=== PATIENT | male | born 1985 | race Caucasian/White ===

== ENCOUNTER 2016-09-05 06:30 | Emergency (ER) | payer BC ==
[2016-09-05] MEDS ORDERED: IBUPROFEN 800 MG TAB PO STA (07:33)
--- NOTE | 2016-09-05 07:36 | ED ---
Extremity Problem HPI - General Chief complaint: Extremity Problem,Nontraumatic Stated complaint: Knee Pain Time Seen by Provider: 09/05/16 07:00 Source: patient, RN notes reviewed Mode of arrival: ambulatory Limitations: no limitations - History of Present Illness Initial comments: This is a 30-year-old male who presents with complaints of 2 days of left knee pain. He states he does live bending in lifting up and down type movements he points to the anterior aspect of his knee. He states the pain shooting at times sometimes sharp currently is 5-6/10 in severity it hurts when he moves it arrested feels improved. He denies any trauma fevers chills or sweats. He states that about a year ago he was told he may have arthritis possibly rheumatoid arthritis in his foot. He did take Aleve yesterday with some improvement of his pain. He denies any fevers chills sweats or other symptoms at this time MD Complaint: extremity pain - Related Data Previous Rx's Medication Instructions Recorded Ibuprofen 800 mg PO Q6HR PRN #20 tablet 09/05/16 Allergies Allergy/AdvReac Type Severity Reaction Status Date / Time No Known Allergies Allergy Verified 09/05/16 07:19 Review of Systems ROS Statement: Those systems with pertinent positive or pertinent negative responses have been documented in the HPI. ROS Other: All systems not noted in ROS Statement are negative. Past Medical History Past Medical History: No Reported History History of Any Multi-Drug Resistant Organisms: None Reported Past Surgical History: No Surgical Hx Reported Past Psychological History: Anxiety Smoking Status: Never smoker Past Alcohol Use History: None Reported Past Drug Use History: None Reported General Exam - General Exam Comments Initial Comments: This is a well-developed well-nourished awake alert oriented 3 male Limitations: no limitations General appearance: alert, in no apparent distress Head exam: Present: atraumatic, normocephalic, normal inspection Eye exam: Present: normal appearance, PERRL, EOMI. Absent: scleral icterus, conjunctival injection, periorbital swelling Neck exam: Present: normal inspection Respiratory exam: Present: other (No evidence of respiratory distress) Cardiovascular Exam: Present: other (Social recall and regular) Extremities exam: Present: normal inspection, full ROM, tenderness, normal capillary refill, other (Tenderness palpation of the patella with a small amount crepitation attentive ballottement. Some tenderness over the patellar tendon no definite effusion. Patient does demonstrate full range of motion no posterior medial or lateral tenderness palpation no definite pain was worse or valgus stress) Neurological exam: Present: alert, oriented X3, CN II-XII intact Psychiatric exam: Present: normal affect, normal mood Skin exam: Present: warm, dry, intact, normal color. Absent: rash Course Vital Signs 09/05/16 06:38 Temperature 96.8 F L Pulse Rate 87 Respiratory 18 Rate Blood Pressure 138/74 O2 Sat by Pulse 97 Oximetry Medical Decision Making - Medical Decision Making I did discuss the findings with the patient. The presentation is consistent with patellar bursitis. Patient will be discharged with anti-inflammatory she is a follow-up with his doctor and return when necessary off work for rest of the shift today. - Radiology Data Radiology results: report reviewed (I did review the imaging and report no acute findings are seen.), image reviewed Disposition Clinical Impression: Patellar bursitis of left knee Disposition: HOME SELF-CARE Condition: Good Instructions: Knee Bursitis (ED) Prescriptions: Ibuprofen 800 mg PO Q6HR PRN #20 tablet PRN Reason: Pain Referrals: Gustavo Ashraf MD [Primary Care Provider] - 1-2 days
--- NOTE | 2016-09-05 08:05 | XR ---
EXAMINATION TYPE: XR knee 4V LT DATE OF EXAM ORDERED: 09/05/2016 HISTORY: Pain. FINDINGS: No fracture, dislocation or joint effusion is seen. The joint spaces are well maintained. T here is no chondrocalcinosis.. IMPRESSION: NORMAL LEFT KNEE.
[2016-09-05 08:27] VITALS: BP 131/76; PULSE 74; RESP 20; TEMP 97.1
== END 2016-09-05 08:27 | disposition home or self-care (01) ==
LOC: EDBD → EC 06:30
DX: M70.42 Prepatellar bursitis, left knee (principal)
CPT/HCPCS: 99283

== ENCOUNTER → 2017-12-31 | Outpatient (CLI) | payer OTHER ==
--- NOTE | 2017-12-31 08:32 | US ---
EXAMINATION TYPE: US liver DATE OF EXAM: 12/31/2017 COMPARISON: NONE CLINICAL HISTORY: R94.5 ABN Liver Function. Elevated LFT's EXAM MEASUREMENTS: Liver Length: 16.3 cm Gallbladder Wall: 0.3 cm CBD: 0.5 cm Right Kidney: 12.0 x 5.5 x 5.7 cm Large pt body habitus, difficult to scan Pancreas: wnl, tail obscured by overlying bowel gas Liver: Difficult to visualized, heterogeneous, cyst right lobe adjacent to GB= 3.5 x 3.6 x 4.2 cm Gallbladder: Possible sludge with small gallstones at neck Evidence for sonographic Hill's sign: No CBD: wnl Right Kidney: Visualized portions appeared wnl IMPRESSION: 1. Cholelithiasis with underlying bladder sludge. No evidence for wall thickening. 2. Hepatic cyst. 3. Hepatic steatosis.
== END | disposition home or self-care (01) ==
LOC: RADUSWWP 07:53
PROVIDERS: ATTEND Family Medicine
DX: K80.20 Calculus of gallbladder without cholecystitis without obstruction (principal); K76.89 Other specified diseases of liver; K76.0 Fatty (change of) liver, not elsewhere classified; N32.89 Other specified disorders of bladder
CPT/HCPCS: 76705

== ENCOUNTER → 2018-04-22 | Outpatient (CLI) | payer OTHER ==
[2018-04-22 10:12] LABS: HCT 50.4 % (39.0-53.0); MCH 29.9 pg (25.0-35.0); MCHC 33.7 g/dL (31.0-37.0); MCV 88.8 fL (80.0-100.0); Mean Platelet Volume 6.8; Platelet Count 246 k/uL (150-450); RBC 5.67 m/uL (4.30-5.90); RDW 13.2 % (11.5-15.5); WBC 7.1 k/uL (3.8-10.6)
[2018-04-22 17:17] LABS: Albumin 4.4 g/dL (3.80-4.90); Albumin/Globulin Ratio 1.83 (1.60-3.17); Anion Gap 10.3 mmol/L (4.00-12.00); Calcium 9.4 mg/dL (8.7-10.3); Carbon Dioxide 25.7 mmol/L (21.6-31.8); Globulin 2.4 g/dL (1.6-3.3); Potassium 4.2 mmol/L (3.5-5.5); Total Bilirubin 0.9 mg/dL (0.2-1.2); Total Protein 6.8 g/dL (6.2-8.2)
== END | disposition home or self-care (01) ==
LOC: LABWHC1 09:12
PROVIDERS: ATTEND Surgery
DX: K81.1 Chronic cholecystitis (principal)
CPT/HCPCS: 36415; 80053; 85027

== ENCOUNTER 2018-04-26 07:45 | Day surgery (SDC) | payer OTHER ==
[2018-04-24 14:33] VITALS: BMI 38.7
[~2018-04-26 07:45] MED LIST: DEXAMETHASONE SOD PHOSPHATE 10 MG/ML 1 ML VIAL IV ONE; HEPARIN SODIUM,PORCINE 5,000 UNIT/ML 1 ML VIAL SQ ONE; LACTATED RINGERS 1,000 ML IV SCH; MIDAZOLAM (PF) 2 MG/2 ML VIAL IV PRN; SCOPOLAMINE 1.5MG/72HR PATCH TRANSDERM ONE; ceFAZolin IN SWFI 2 GM/20 ML SYRINGE IVP ONE
[2018-04-26] MEDS: ONDANSETRON 4 MG/2 ML VIAL IVP ONE ×2 (08:24→11:10)
[2018-04-26] MEDS ORDERED: GLYCOPYRROLATE 0.2 MG/ML 2 ML VIAL ONE (09:37)
[2018-04-26] MEDS ORDERED: LIDOCAINE 1% INJ 10MG/ML (20 ML MDV) ONE (09:37)
[2018-04-26] MEDS ORDERED: MIDAZOLAM 2 MG/2 ML VIAL ONE (09:37)
[2018-04-26] MEDS ORDERED: NEOSTIGMINE 1 MG/ML 10 ML VIAL ONE (09:37)
[2018-04-26] MEDS ORDERED: fentaNYL (PF) 50 MCG/ML 2 ML AMP ONE (09:37)
[2018-04-26] MEDS ORDERED: ROCURONIUM BROMIDE 10 MG/ML 10 ML VIAL IV ONE (09:37)
[2018-04-26] MEDS ORDERED: SUCCINYLCHOLINE CHLORIDE 100 MG/5 ML SYR IV ONE (09:37)
[2018-04-26] MEDS ORDERED: PROPOFOL 10 MG/ML 20 ML VIAL IV ONE (09:37)
[2018-04-26] MEDS ORDERED: BUPIVACAIN-EPI 0.5%-1:200,000 30 ML VIAL SQ ONE (10:07)
[2018-04-26] MEDS ORDERED: HYDROcodone/APAP 5-325MG 1 EACH TAB PO PRN (10:40)
[2018-04-26] MEDS ORDERED: NALOXONE 0.4 MG/ML 1 ML VIAL IV PRN (10:40)
--- NOTE | 2018-04-26 10:43 | P.OP ---
Date of Procedure: 04/26/18 Procedure(s) Performed: PREOPERATIVE DIAGNOSIS: Chronic cholecystitis POSTOPERATIVE DIAGNOSIS: Same, liver cyst PROCEDURE: Laparoscopic cholecystectomy SURGEON: Luz Maria EBL: Minimal see anesthesia record ANESTHESIA: Gen. COMPLICATIONS: None OPERATIVE PROCEDURE: The patient was brought and placed on the operating room table in the supine position. The patient was placed under general anesthesia at that time. The abdomen was prepped and draped in the usual sterile fashion. A small vertical infraumbilical incision was made. The fascia was grasped with the Madhu forceps. The fascia was retracted anteriorly. The Veress needle was advanced into the peritoneal cavity. The saline drop test was normal. Insufflation took place up to 15 mmHg. A 5 mm optical trocar was advanced and the peritoneal cavity. 2 additional 5 mm trochars were placed in the right upper quadrant under direct visualization. A 12 mm trocar was advanced into the epigastric incision site. The gallbladder was retracted superiorly and laterally. The peritoneum overlying the infundibulum was bluntly dissected. The patient's cystic duct was visualized. The junction between the cystic duct common and hepatic duct was identified. The cystic duct was then divided after placement of 3 12 mm clips on the patient's side and one on the specimen side. The cystic artery was identified and clipped as well. A small vessel was seen along the gallbladder fossa and clipped as well. The gallbladder was then removed from the liver bed using electrocautery. As we reached the apex of the gallbladder at the fundus a small hole was identified in the gallbladder fossa and through that hole a large volume of clear fluid was seen escaping the liver. As I further removed the gallbladder from the liver bed I identified that this was a large cyst immediately beneath the gallbladder fossa. This had clear fluid in the cyst. There was no bilious fluid seen. I was able to see into the cyst cavity that likely measured 3-4 cm in size through a 1 cm or so opening in the cyst wall. No further intervention of the cystoscopy place. The gallbladder was then removed from the epigastric trocar site with an Endo Catch bag. The gallbladder fossa was irrigated with saline. There was no evidence of any bleeding or biliary drainage seen. The fascia at the 12 millimeter site was closed using a Ericon 0 Vicryl stitch. The trochars were then removed. The skin at all 4 sites was closed using a 4-0 Monocryl stitch. Skin glue was utilized on the incision sites. At the end of this procedure the sponge and needle counts were correct. DISPOSITION: Stable to the recovery room
[2018-04-26] MEDS: MEPERIDINE 50 MG/ML SYRINGE IVP ONE ×2 (11:03→11:09)
[2018-04-26 11:07] VITALS: TEMP 97
[2018-04-26] MEDS: HYDROmorphone 0.5 MG/0.5 ML SYRINGE IVP PRN ×2 (11:14→11:22)
[2018-04-26 11:16] VITALS: RESP 16
[2018-04-26] MEDS ORDERED: HYDROcodone/APAP 5-325MG 1 EACH TAB PO ONE (12:14)
[2018-04-26 12:21] VITALS: BP 110/65; PULSE 68
== END 2018-04-26 13:48 | disposition home or self-care (01) ==
LOC: OR 07:45
PROVIDERS: ATTEND Surgery
DX: K80.10 Calculus of gallbladder with chronic cholecystitis without obstruction (principal); K76.89 Other specified diseases of liver; F41.9 Anxiety disorder, unspecified; G43.909 Migraine, unspecified, not intractable, without status migrainosus; Z79.899 Other long term (current) drug therapy
CPT/HCPCS: 88304; 47562; J2250; J1644; J1100; J2710; J2175; J2405; J2001; J3010; J0330; J2704; J1170; J0690

== ENCOUNTER 2019-08-09 22:01 | Emergency (ER) | payer OTHER ==
--- NOTE | 2019-08-09 23:27 | CT ---
EXAMINATION TYPE: CT brain wo con DATE OF EXAM: 08/09/2019 COMPARISON: None HISTORY: headache CT DLP: 1074.4 mGycm Automated exposure control for dose reduction was used. Ventricles and sulci appear normal. There is no mass effect nor midline shift. There is no sign of in tracranial hemorrhage. Calvarium is intact. There is no evidence of cerebral edema. IMPRESSION: Negative unenhanced head CT scan.
[2019-08-09] MEDS ORDERED: hydrALAZINE HCL 20 MG/ML 1 ML VIAL IVP STA (23:36)
[2019-08-09] MEDS ORDERED: KETOROLAC 30 MG/ML 1 ML VIAL IVP STA (23:37)
[2019-08-09] MEDS ORDERED: SODIUM CHLORIDE 0.9% 500 ML 500 ML IV ONE (23:37)
--- NOTE | 2019-08-10 00:07 | ED ---
Headache HPI - General Chief Complaint: Headache Stated Complaint: Sharp pain in LT side of head, vomiting Time Seen by Provider: 08/09/19 22:21 Mode of arrival: ambulatory Limitations: no limitations - History of Present Illness Initial Comments: 33yo male presenting today for chief complaint of headache. Patient states his history of chronic migraines he states occur 1-2 times a week for the past few years. Patient states they fluctuance from left-sided right side of the head he states they're only sharp in nature. Patient states around 7:45 PM he began to develop a headache he states he came on gradually he states that increased over the past few hours however has began to decrease. Patient states that he has history of HTN but has not been prescribed medications, denies CP/SOB, visual changes, fevers, neck stiffness, weakness of the UE or LE, no sensation deficits. Admits to some nausea, vomiting that is typical of his migraines. Patient denies sudden onset of RIVAS or this being the worst RIVAS of his life. Patien thas no additional complaints and upon arrival he appears well in no distress. - Related Data Home Medications Medication Instructions Recorded Confirmed Ibuprofen [Motrin] 600 mg PO ONCE PRN 04/24/18 04/26/18 PARoxetine [Paxil] 20 mg PO DAILY 04/24/18 04/26/18 Previous Rx's Medication Instructions Recorded Hydrocodone/Acetaminophen [[place] 1 tab PO Q6HR PRN 3 Days #10 tab 04/26/18 5-325] Allergies Allergy/AdvReac Type Severity Reaction Status Date / Time No Known Allergies Allergy Verified 08/09/19 22:19 Review of Systems ROS Statement: Those systems with pertinent positive or pertinent negative responses have been documented in the HPI. ROS Other: All systems not noted in ROS Statement are negative. Past Medical History Past Medical History: No Reported History Additional Past Medical History / Comment(s): kidney stones History of Any Multi-Drug Resistant Organisms: None Reported Past Surgical History: Cholecystectomy Past Psychological History: Anxiety Smoking Status: Never smoker Past Alcohol Use History: None Reported Past Drug Use History: Marijuana General Exam - General Exam Comments Initial Comments: General: The patient is awake and alert, in no distress, and does not appear acutely ill. Eye: Pupils are equal, round and reactive to light, extra-ocular movements are intact. No nystagmus. There is normal conjunctiva bilaterally. No signs of icterus. Ears, nose, mouth and throat: There are moist mucous membranes and no oral lesions. Neck: The neck is supple, there is no tenderness or JVD. Cardiovascular: There is a regular rate and rhythm. No murmur, rub or gallop is appreciated. Respiratory: Lungs are clear to auscultation, respirations are non-labored, breath sounds are equal. No wheezes, stridor, rales, or rhonchi. Gastrointestinal: [Soft, non-distended, non-tender abdomen without masses or organomegaly noted. There is no rebound or guarding present. No CVA tenderness. Bowel sounds are unremarkable.] Musculoskeletal: Normal ROM, no tenderness. Strength 5/5. Sensation intact. Pulses equal bilaterally 2+. Neurological: A&O x 3. CN II-XII intact, There are no obvious motor or sensory deficits. Coordination appears grossly intact. Speech is normal. Skin: Skin is warm and dry and no rashes or lesions are noted. Psychiatric: Cooperative, appropriate mood & affect, normal judgment. Limitations: no limitations Course Vital Signs 08/09/19 08/10/19 08/10/19 22:16 00:05 00:29 Temperature 98.0 F 97.0 F L Pulse Rate 90 75 Respiratory 20 18 Rate Blood Pressure 153/111 138/97 O2 Sat by Pulse 99 98 Oximetry Medical Decision Making - Medical Decision Making 32-year-old male presenting today for chief complaint of headache. Patient has no focal neurological deficits he appears well nontoxic. No signs of nuchal irritation. Patient states he has history of chronic migraines denies a significant change today. Patient states he does have history of elevated blood pressure but not prescribed medications. RIVAS began roughly in the last 3-[address] wo contrast (-). Recommend outpatient MRI. Patient is to f/u with PCP for further management. Patient is agreeable to this care plan and discharge at this time. Discussed case with Dr. Muñoz who is agreeable to care plan. Disposition Clinical Impression: Headache, Hx of migraine headaches Disposition: HOME SELF-CARE Condition: Good Instructions (If sedation given, give patient instructions): Acute Headache (ED) Additional Instructions: Please use medication as discussed. Please follow-up with family doctor in the next 2 days. Please return to emergency room if the symptoms increase or worsen or for any other concerns. Is patient prescribed a controlled substance at d/c from ED?: No Referrals: Gustavo Ashraf MD [Primary Care Provider] - 1-2 days Time of Disposition: 00:07
[2019-08-10 00:08] VITALS: BP 138/97; RESP 18; TEMP 97
[2019-08-10 00:30] VITALS: PULSE 75
== END 2019-08-10 00:33 | disposition home or self-care (01) ==
LOC: EC 22:01
DX: R51 Headache (principal); R03.0 Elevated blood-pressure reading, without diagnosis of hypertension; F41.9 Anxiety disorder, unspecified; Z86.69 Personal history of other diseases of the nervous system and sense organs; Z79.899 Other long term (current) drug therapy
CPT/HCPCS: 70450; 99283; 96374; 96361; J1885

== ENCOUNTER 2020-06-08 12:50 | Emergency (ER) | payer OTHER ==
[2020-06-08 14:07] VITALS: BP 133/92; PULSE 107; RESP 20; TEMP 98.5
--- NOTE | 2020-06-08 15:10 | XR ---
Chest x-ray with bilateral RIBS HISTORY: Pain, lifting injury Frontal view of the chest, I views of left ribs and 4 views of the right. Submitted There is no evident pneumothorax or pleural effusion. No evident displaced rib fracture. Surgical cli ps are present right upper quadrant. There is eventration of the right hemidiaphragm. Cardiac mediast inal silhouette is within normal limits. IMPRESSION: No acute abnormality. Bone scan could be performed for increased sensitivity if occult fr acture is suspected clinically.
--- NOTE | 2020-06-08 15:40 | ED ---
General Adult HPI - General Chief complaint: Chest Pain Stated complaint: heard "pop" in chest while lifting Time Seen by Provider: 06/08/20 15:37 Source: patient Mode of arrival: ambulatory Limitations: no limitations - History of Present Illness Initial comments: 34-year-old male presents to emergency Department with a chief complaint of rib pain. Patient reports he was lifting his dad earlier today and felt a pop in the midsternal region of his chest. Patient reports initially the pain radiated bilaterally to the flank regions but then it mostly concentrated itself to the left flank region of the ribs. A short reports pain is exacerbated with palpation to the left side. Denies any chest pain or shortness of breath. Reports pain is somewhat exacerbated with left and right rotation. Denies any back pain or abdominal pain. Denies lower extremity weakness. - Related Data Home Medications Medication Instructions Recorded Confirmed Ibuprofen [Motrin] 600 mg PO ONCE PRN 04/24/18 04/26/18 PARoxetine [Paxil] 20 mg PO DAILY 04/24/18 04/26/18 Previous Rx's Medication Instructions Recorded Hydrocodone/Acetaminophen [[place] 1 tab PO Q6HR PRN 3 Days #10 tab 04/26/18 5-325] Allergies Allergy/AdvReac Type Severity Reaction Status Date / Time No Known Allergies Allergy Verified 06/08/20 14:08 Review of Systems ROS Statement: Those systems with pertinent positive or pertinent negative responses have been documented in the HPI. ROS Other: All systems not noted in ROS Statement are negative. Past Medical History Past Medical History: No Reported History Additional Past Medical History / Comment(s): kidney stones History of Any Multi-Drug Resistant Organisms: None Reported Past Surgical History: Cholecystectomy Past Psychological History: Anxiety Smoking Status: Never smoker Past Alcohol Use History: None Reported Past Drug Use History: Marijuana General Exam Limitations: no limitations General appearance: alert, in no apparent distress, obese Head exam: Present: atraumatic, normocephalic, normal inspection Eye exam: Present: normal appearance, PERRL, EOMI Pupils: Present: normal accommodation ENT exam: Present: normal exam, normal oropharynx, mucous membranes moist, TM's normal bilaterally, normal external ear exam Neck exam: Present: normal inspection, full ROM. Absent: tenderness Respiratory exam: Present: normal lung sounds bilaterally, chest wall tenderness (Tenderness over the ribs in the left side. Localized tenderness. No overlying ecchymosis or erythema.). Absent: respiratory distress, wheezes, rales, rhonchi, stridor, accessory muscle use, decreased breath sounds, prolonged expiratory Cardiovascular Exam: Present: regular rate, normal rhythm, normal heart sounds GI/Abdominal exam: Present: soft. Absent: distended, tenderness, guarding, rebound, rigid Extremities exam: Present: normal inspection, full ROM, normal capillary refill, other (Palpable DP and PT bilaterally.). Absent: tenderness, pedal edema, joint swelling, calf tenderness Back exam: Present: normal inspection, full ROM. Absent: tenderness, CVA tenderness (R), CVA tenderness (L) Neurological exam: Present: alert, oriented X3, normal gait Psychiatric exam: Present: normal affect, normal mood Skin exam: Present: warm, dry, intact, normal color Course Vital Signs 06/08/20 14:03 Temperature 98.5 F Pulse Rate 107 H Respiratory 20 Rate Blood Pressure 133/92 O2 Sat by Pulse 97 Oximetry Medical Decision Making - Medical Decision Making 34 -year-old male presents to the emergency department with a chief complaint of rib pain. On physical examination, patient has localized tenderness to the ribs and the left flank region. Vital signs are within normal limits. Chest x-ray with ribs shows no acute findings. I suspect this is muscular strain of the chest wall. Should return parameters were thoroughly discussed with patient was understanding and agreeable. Case discussed with Dr. Lowry. Disposition Clinical Impression: Acute chest wall pain Disposition: HOME SELF-CARE Condition: Stable Instructions (If sedation given, give patient instructions): Rib Contusion (ED) Additional Instructions: Please return to the Emergency Department if symptoms worsen or any other concerns. Is patient prescribed a controlled substance at d/c from ED?: No Referrals: Gustavo Ashraf MD [Primary Care Provider] - 1-2 days Time of Disposition: 15:39
== END 2020-06-08 15:45 | disposition home or self-care (01) ==
LOC: EC 12:50
DX: R07.89 Other chest pain (principal); F41.9 Anxiety disorder, unspecified; Z79.899 Other long term (current) drug therapy
CPT/HCPCS: 71111; 99283